=== PATIENT | female | born 1960 | race Caucasian/White ===

== ENCOUNTER 2019-10-01 13:13 | Outpatient (CLI) | payer MEDICARE, MEDICAID, SELFPAY ==
--- NOTE | 2019-10-01 13:22 | MM_ITS ---
WS: [id number] BILATERAL DIGITAL SCREENING MAMMOGRAPHY WITH CAD CLINICAL INFORMATION: SCREENING HISTORY: Screening mammogram. No current complaints. COMPARISON: TECHNIQUE: Bilateral CC and MLO views. FINDINGS: Scattered fibroglandular densities bilaterally. No suspicious focal mass, asymmetry, calcifications, or architectural distortion. Tiny bilateral punctate calcifications are stable. No evidence of malign noé. MM/[place] [id number] IMPRESSION: BI-RADS: 1-Negative FOLLOW UP: 1 Year Follow-up Recommend return to annual screening mammography.
== END 2019-10-01 13:14 | disposition home or self-care (01) ==
LOC: RADSHAW 13:18
PROVIDERS: Family Provider Family Medicine; PCP Family Medicine; Visit Provider Family Medicine
DX: Z12.31 Encounter for screening mammogram for malignant neoplasm of breast (principal)
CPT/HCPCS: 77067

== ENCOUNTER → 2019-12-26 08:21 | Outpatient (BNVA) | payer MEDICARE, MEDICAID, SELFPAY | PROVIDERS: Family Provider Family Medicine; PCP Family Medicine; Visit Provider Nurse Practitioner Psychiatric/Mental Health | DX: F33.41 Major depressive disorder, recurrent, in partial remission (principal); F41.8 Other specified anxiety disorders; F43.12 Post-traumatic stress disorder, chronic | CPT/HCPCS: 99213 ==

== ENCOUNTER → 2020-03-26 07:46 | Outpatient (BNVA) | payer MEDICARE, MEDICAID, SELFPAY | PROVIDERS: Family Provider Family Medicine; PCP Family Medicine; Visit Provider Nurse Practitioner Psychiatric/Mental Health | DX: F33.41 Major depressive disorder, recurrent, in partial remission (principal); F41.8 Other specified anxiety disorders; F43.12 Post-traumatic stress disorder, chronic | CPT/HCPCS: 99213 ==

== ENCOUNTER → 2020-06-25 08:06 | Outpatient (BNVA) | payer MEDICARE, MEDICAID, SELFPAY | PROVIDERS: Family Provider Family Medicine; PCP Family Medicine; Visit Provider Nurse Practitioner Psychiatric/Mental Health | DX: F33.41 Major depressive disorder, recurrent, in partial remission (principal); F41.8 Other specified anxiety disorders; F43.12 Post-traumatic stress disorder, chronic | CPT/HCPCS: 99213 ==

== ENCOUNTER → 2020-09-24 10:15 | Outpatient (BNVA) | payer MEDICARE, MEDICAID, SELFPAY | PROVIDERS: Family Provider Family Medicine; PCP Family Medicine; Visit Provider Nurse Practitioner Psychiatric/Mental Health | DX: F33.41 Major depressive disorder, recurrent, in partial remission (principal); F41.8 Other specified anxiety disorders; F43.12 Post-traumatic stress disorder, chronic | CPT/HCPCS: 99214 ==

== ENCOUNTER 2020-10-29 11:06 | Outpatient (CLI) | payer MEDICARE, MEDICAID, SELFPAY ==
--- NOTE | 2020-10-29 11:10 | MM_ITS ---
WS: [id number] BILATERAL DIGITAL SCREENING MAMMOGRAPHY WITH CAD CLINICAL INFORMATION: SCREENING HISTORY: Screening mammogram. No current complaints. COMPARISON: October 01, 2019 TECHNIQUE: Bilateral CC and MLO views. FINDINGS: Scattered fibroglandular densities bilaterally. No suspicious focal mass, asymmetry, calcifications, or architectural distortion. No evidence of malignancy. Stable tiny bilateral punctate calcifications . MM/[place] [id number] IMPRESSION: BI-RADS: 2-Benign FOLLOW UP: 1 Year Follow-up Recommend return to annual screening mammography.
== END 2020-10-29 11:07 | disposition home or self-care (01) ==
LOC: RADSHAW 11:08
PROVIDERS: PCP Nurse Practitioner Family; Visit Provider Nurse Practitioner Family
DX: Z12.31 Encounter for screening mammogram for malignant neoplasm of breast (principal)
CPT/HCPCS: 77067

== ENCOUNTER → 2020-12-17 11:44 | Outpatient (BNVA) | payer MEDICARE, MEDICAID, SELFPAY | PROVIDERS: PCP Nurse Practitioner Family; Visit Provider Nurse Practitioner Family | DX: E78.2 Mixed hyperlipidemia (principal); Z79.899 Other long term (current) drug therapy; I10 Essential (primary) hypertension; E55.9 Vitamin D deficiency, unspecified; E03.9 Hypothyroidism, unspecified; Z00.00 Encounter for general adult medical examination without abnormal findings | CPT/HCPCS: 80053; 80061; 81003; 82306; 83036; 84443; 85025 ==

== ENCOUNTER → 2020-12-31 08:48 | Outpatient (BNVA) | payer MEDICARE, MEDICAID, SELFPAY | PROVIDERS: PCP Nurse Practitioner Family; Visit Provider Nurse Practitioner Psychiatric/Mental Health | DX: F33.41 Major depressive disorder, recurrent, in partial remission (principal); F41.8 Other specified anxiety disorders; F43.12 Post-traumatic stress disorder, chronic | CPT/HCPCS: 99213 ==

== ENCOUNTER → 2021-06-24 08:15 | Outpatient (BNVA) | payer MEDICARE, MEDICAID, SELFPAY | PROVIDERS: PCP Nurse Practitioner Family; Visit Provider Nurse Practitioner Psychiatric/Mental Health | DX: F33.41 Major depressive disorder, recurrent, in partial remission (principal); F41.8 Other specified anxiety disorders; F43.12 Post-traumatic stress disorder, chronic | CPT/HCPCS: 99214 ==

== ENCOUNTER 2021-08-09 10:25 | Outpatient (CLI) | payer MEDICARE, MEDICAID, SELFPAY ==
--- NOTE | 2021-08-09 10:15 | USCV_ITS ---
Dianne Watson Age: 61 Gender: F : 1960 Exam Date: 08/09/2021 10:56 Ordering Phys: Torrey Sage MD ([email or web address]) Technologist: Rafia Irene [place] [facility] [place] DYSP[place]A BP: 112 / 60 HR: 56 Rhythm: Sinus Technical Quality: Adequate MEASUREMENTS (Male / Female) Normal Values 2D ECHO LV Diastolic Diameter PLAX 4.5 cm 4.2 - 5.9 / 3.9 - 5.3 cm LV Systolic Diameter PLAX 3.1 cm IVS Diastolic Thickness 1.7 cm 0.6 - 1.0 / 0.6 - 0.9 cm IVS Systolic Thickness 1.7 cm LVPW Diastolic Thickness 1.9 cm 0.6 - 1.0 / 0.6 - 0.9 cm LVPW Systolic Thickness 2.0 cm LVOT Diameter 2.0 cm LV Ejection Fraction 2D Teich 58.8 % LV Ejection Fraction MOD 2C 51.0 % LV Ejection Fraction 2C AL 46.0 % LA Diameter 3.1 cm LA Width 3.9 cm LA Height 5.6 cm RA Width 3.9 cm RA Height 5.2 cm Aorta at Sinotubular Diameter 2.9 cm M-MODE Aortic Annulus Diameter 3.6 cm LA Ao Ratio MM 0.9 MV E Point Septal Separation 0.8 cm DOPPLER AV Peak Velocity 118.0 cm/s LVOT Peak Velocity 106.0 cm/s AV Area Cont Eq vti 2.9 cm squared AV Area Cont Eq pk 2.8 cm squared MV Peak Velocity 111.0 cm/s MV Area PHT 3.3 cm squared Mitral E to A Ratio 2.0 MV E' Velocity 51.0 cm/s Mitral E to MV E' Ratio 10.3 Mitral E to LV E' Lateral Ratio 9.7 Mitral E to LV E' Septal Ratio 11.2 TR Peak Velocity 205.3 cm/s TR Peak Gradient 16.9 mmHg TR Mean Velocity 161.0 cm/s TR Mean Gradient 11.0 mmHg TR Velocity Time Integral 66.4 cm TV Peak E Velocity 42.0 cm/s Right Atrial Pressure 3.0 mmHg Pulmonary Artery Systolic Pressu 19.9 mmHg PV Peak Velocity 89.0 cm/s RV Acceleration Time 0.1 s RV Ejection Time 0.4 s RV AcT/ET 0.3 FINDINGS Left Ventricle Normal left ventricular size with normal ejection fraction of 58% . Mild left ventricular hypertrophy. No significant wall motion normalities. Grade III/IV diastolic dysfunction (restrictive filling pattern), severely elevated filling pressures. Right Ventricle The right ventricle is normal in size and function. Right Atrium The right atrium is normal in size. Left Atrium Mildly increased left atrial size. Mitral Valve Trace mitral valve regurgitation. Aortic Valve Mild aortic valve regurgitation. Tricuspid Valve Mild tricuspid valve regurgitation. Pulmonic Valve No gross abnormalities noted Pericardium Normal pericardium without effusion. Aorta Normal ascending aorta dimension. Aortic root, at the level of the sinuses, measured 3.6 cm in diameter CONCLUSIONS Normal left ventricular size with normal LVEF of 58 %. Mild left ventricular hypertrophy. No significant wall motion abnormalities. Grade III/IV diastolic dysfunction (restrictive filling pattern), severely elevated filling pressures. Mildly increased left atrial size. Mild aortic and tricuspid valve regurgitation. Trace mitral valve regurgitation. There is no pericardial effusion. There are no intracardiac masses. Aortic root at the level of the sinuses measured 3.6 cm in diameter, upper limit of normal. Compared to the study from 05/19/2013, the diastolic dysfunction appears to be new. Dr Torrey Sage MD [facility] (Electronically Signed) Final Date: 09 August 2021 20:29 S
== END 2021-08-09 10:26 | disposition home or self-care (01) ==
LOC: RAD 10:34
PROVIDERS: PCP Nurse Practitioner Family; Visit Provider Internal Medicine Cardiovascular Disease
DX: R06.00 Dyspnea, unspecified (principal); I08.3 Combined rheumatic disorders of mitral, aortic and tricuspid valves
CPT/HCPCS: 93306

== ENCOUNTER → 2021-09-30 08:28 | Outpatient (BNVA) | payer MEDICARE, MEDICAID, SELFPAY | PROVIDERS: PCP Nurse Practitioner Family; Visit Provider Nurse Practitioner Psychiatric/Mental Health | DX: F33.41 Major depressive disorder, recurrent, in partial remission (principal); F41.8 Other specified anxiety disorders; F43.12 Post-traumatic stress disorder, chronic | CPT/HCPCS: 99214 ==

== ENCOUNTER 2021-12-23 10:07 | Outpatient (CLI) | payer MEDICARE, MEDICAID, SELFPAY ==
--- NOTE | 2021-12-23 10:22 | MM_ITS ---
WS: [id number] Exam: [place] [id number] Date/Time of Exam: 12/23/2021 10:22 AM Reason For Exam: SCREENING VIEWS: MLO and CC views both breasts. 3D digital tomosynthesis is also included in this exam. Comparison made with prior exam of 01/07/2015, 01/21/2016, 01/25/2017, 06/19/2018, 10/01/2019, and 10/29/19 21 Findings: There was no sign of mass, architectural distortion or suspicious calcification in either breast. Fa tty MM/[place] [id number] Impression: BI-RADS: 2-Benign FOLLOW-UP: 1 Year Follow-up This mammogram was also analyzed by the Computer Aided Detection System R2 Imag e Manager Service Desk.
== END 2021-12-23 10:08 | disposition home or self-care (01) ==
LOC: RAD 10:19
PROVIDERS: PCP Nurse Practitioner; Visit Provider Nurse Practitioner Family
DX: Z12.31 Encounter for screening mammogram for malignant neoplasm of breast (principal)
CPT/HCPCS: 77063; 77067

== ENCOUNTER → 2021-12-30 08:31 | Outpatient (BNVA) | payer MEDICARE, MEDICAID, SELFPAY | PROVIDERS: PCP Nurse Practitioner; Visit Provider Nurse Practitioner Psychiatric/Mental Health | DX: F33.41 Major depressive disorder, recurrent, in partial remission (principal); F41.8 Other specified anxiety disorders; F43.12 Post-traumatic stress disorder, chronic | CPT/HCPCS: 99214 ==

== ENCOUNTER → 2022-01-13 10:38 | Outpatient (BNVA) | payer MEDICARE, MEDICAID, SELFPAY | PROVIDERS: PCP Nurse Practitioner; Visit Provider Nurse Practitioner | DX: Z79.899 Other long term (current) drug therapy (principal); R51.9 Headache, unspecified | CPT/HCPCS: 80053; 81000; 84443; 85025 ==

== ENCOUNTER → 2022-04-28 09:37 | Outpatient (BNVA) | payer MEDICARE, MEDICAID, SELFPAY | PROVIDERS: PCP Nurse Practitioner; Visit Provider Nurse Practitioner | DX: E55.9 Vitamin D deficiency, unspecified (principal); E03.9 Hypothyroidism, unspecified; E78.2 Mixed hyperlipidemia; I10 Essential (primary) hypertension; Z79.899 Other long term (current) drug therapy; L30.9 Dermatitis, unspecified; K21.9 Gastro-esophageal reflux disease without esophagitis | CPT/HCPCS: 80053; 80061; 81003; 82306; 83036; 84443; 85025 ==

== ENCOUNTER → 2022-06-13 09:46 | Outpatient (BNVA) | payer MEDICARE, MEDICAID, SELFPAY | PROVIDERS: PCP Nurse Practitioner; Visit Provider Internal Medicine Cardiovascular Disease | DX: Z98.890 Other specified postprocedural states (principal); Z86.79 Personal history of other diseases of the circulatory system; I10 Essential (primary) hypertension; F43.12 Post-traumatic stress disorder, chronic; E78.2 Mixed hyperlipidemia; E03.9 Hypothyroidism, unspecified | CPT/HCPCS: 99214 ==

== ENCOUNTER 2022-07-17 08:06 | Outpatient (CLI) | payer MEDICARE, MEDICAID, SELFPAY ==
--- NOTE | 2022-07-17 08:00 | CT_ITS ---
WS: [id number] CTA THORACIC AORTA WITH AND WITHOUT CONTRAST. HISTORY: Status post ascending aortic repair. Repair in 2003. TECHNIQUE: CT imaging of the thorax is performed with and without contrast. After noncontrast imaging is performed, CT angiogram is performed during injection of Omnipaque 350; 95 mL IV.. Sagittal and c oronal reconstructions, sagittal and coronal MIP imaging is submitted. All CT scans at [facility] use at least one of these dose optimization techniques: automated exposure control; mA and/or kV adjustment per patient size (includes targeted exams where dose is matched to clinical indication); or iterative reconstruction. DLP: 1192.26 mGy.cm COMPARISON: 08/05/2019 Status post ascending aortic repair. The graft appears similar position to the study from 08/05/2019. There is mild ectasia of the ascending aorta with no increase in diameter. Maximum diameter is approx imately 4.0 cm. Aortic annulus is similar diameter the prior study. Aorta tapers normally from the ar ch. Descending aorta is normal caliber. There is no dissection. No mediastinal hematoma. No significa nt amount of thrombus within the graft. Normal size pulmonary artery. Mild enlargement of the LEFT heart chambers. No filling defects within the LEFT atrial appendage. Tricuspid regurgitation into hepatic veins. Lungs are clear. No pulmonary mass, nodule or pneumonia. No pericardial or pleural effusions. Normal enhancement of the proximal pulmonary arteries. Prior cholecystectomy. No adrenal mass. Straightening of the normal thoracic kyphosis. Moderate spondylitic changes with degenerative gas in the disc spaces. Prior median sternotomy. CT/CT angio chest [id number] IMPRESSION: 1. Long-term stability ascending aorta graft repair. No increase in diameter a nd no increase in atherosclerotic disease. No dissection. 2. Prior cholecystectomy. 3. Mild LEFT heart enlargement. 4. Tricuspid regurgitation into hepatic veins.
[2022-07-17] MEDS: iohexol 350 mg/mL 500 mL Btl (per mL) IV (08:39)
== END 2022-07-17 08:07 | disposition home or self-care (01) ==
LOC: RAD 08:10
PROVIDERS: PCP Nurse Practitioner; Visit Provider Internal Medicine Cardiovascular Disease
DX: Z98.890 Other specified postprocedural states (principal); Z86.79 Personal history of other diseases of the circulatory system; I07.1 Rheumatic tricuspid insufficiency; Z90.49 Acquired absence of other specified parts of digestive tract
CPT/HCPCS: 71275; Q9967

== ENCOUNTER → 2022-08-16 13:15 | Outpatient (BNVA) | payer MEDICARE, MEDICAID, SELFPAY | PROVIDERS: PCP Nurse Practitioner; Visit Provider Nurse Practitioner | DX: R51.9 Headache, unspecified (principal) | CPT/HCPCS: 99204 ==

== ENCOUNTER 2022-10-18 10:08 | Outpatient (CLI) | payer MEDICAID, SELFPAY ==
--- NOTE | 2022-10-18 10:15 | MR_ITS ---
WS: [id number] MRI HEAD WITHOUT CONTRAST TECHNIQUE: Sagittal T1, T2 axial, T2 axial FLAIR, axial and coronal T1 images, axial susceptibility w eighted imaging, axial diffusion weighted images, and coronal T2 images were obtained. CLINICAL INFORMATION: R51.9 - Headache, unspecified COMPARISON: CT December 18, 2016 FINDINGS: No evidence of restricted diffusion to suggest acute ischemia. Ventricular system and basal cisterns are patent. Mild small vessel changes. Moderate parenchymal volume loss. Normal posterior fossa. Norm al vascular flow voids at the skull base. Paranasal sinuses are well aerated. Mastoid air cells well aerated. Normal posterior nasopharynx. Normal parapharyngeal fat. Moderate symmetric atrophy temporal lobes and hippocampal formations. Normal optic chiasm and pituita ry infundibulum. No hemosiderin on the susceptibility weighted images. LEFT alex bullosa in the mid dle turbinate. MR/MR head wo con* [id number] IMPRESSION: 1. No evidence of restricted diffusion to suggest acute ischemia. 2. Mild small vessel changes with moderate parenchymal volume loss. 3. No hemosiderin on susceptibly weighted images. 4. Moderate symmetric atrophy temporal lobes and hippocampal formations. 5. Paranasal sinuses and mastoid air cells well aerated. 6. Normal optic chiasm. 7. No other acute findings.
== END 2022-10-18 10:09 | disposition home or self-care (01) ==
PROVIDERS: PCP Nurse Practitioner; Visit Provider Nurse Practitioner
DX: R51.9 Headache, unspecified (principal); G31.9 Degenerative disease of nervous system, unspecified
CPT/HCPCS: 70551

== ENCOUNTER → 2022-12-27 09:49 | Outpatient (BNVA) | payer MEDICARE, MEDICAID, SELFPAY | PROVIDERS: PCP Nurse Practitioner; Visit Provider Specialist | DX: E78.2 Mixed hyperlipidemia (principal); Z98.890 Other specified postprocedural states; Z86.79 Personal history of other diseases of the circulatory system; I10 Essential (primary) hypertension; Z79.82 Long term (current) use of aspirin | CPT/HCPCS: 99214 ==

== ENCOUNTER 2023-01-12 07:02 | Outpatient (CLI) | payer MEDICARE, MEDICAID, SELFPAY ==
--- NOTE | 2023-01-12 07:37 | MM_ITS ---
WS: [id number] BILATERAL SCREENING DIGITAL TOMOSYNTHESIS MAMMOGRAM WITH CAD HISTORY: Screening exam. COMPARISON: 12/23/2021 and 10/29/2020 Bilateral CC and MLO views with tomosynthesis and synthetic mammography submitted. Computer aided det ection analyzed. Breast composition: There are scattered areas of fibroglandular density. No suspicious masses, microc alcifications or architectural distortion. Benign scattered calcifications in each breast. MM/[place] [id number] IMPRESSION: BI-RADS: 2-Benign FOLLOW UP: 1 Year Follow-up
== END 2023-01-12 07:03 | disposition home or self-care (01) ==
LOC: RAD 07:04
PROVIDERS: PCP Nurse Practitioner; Visit Provider Nurse Practitioner
DX: Z12.31 Encounter for screening mammogram for malignant neoplasm of breast (principal); E03.9 Hypothyroidism, unspecified; E78.2 Mixed hyperlipidemia; I10 Essential (primary) hypertension
CPT/HCPCS: 77063; 77067; 80053; 80061; 81000; 84443; 85025

== ENCOUNTER → 2023-03-19 09:13 | Outpatient (BNVA) | payer MEDICARE, MEDICAID, SELFPAY | PROVIDERS: PCP Nurse Practitioner; Visit Provider Specialist | DX: G43.711 Chronic migraine without aura, intractable, with status migrainosus (principal) | CPT/HCPCS: 99214 ==

== ENCOUNTER → 2023-06-08 11:46 | Outpatient (BNVA) | payer MEDICARE, MEDICAID, OTHER, SELFPAY | PROVIDERS: PCP Nurse Practitioner; Visit Provider Nurse Practitioner | DX: Z79.899 Other long term (current) drug therapy (principal); F33.41 Major depressive disorder, recurrent, in partial remission; F41.8 Other specified anxiety disorders | CPT/HCPCS: 80053; 80061; 81000; 83036; 84443; 85025 ==

== ENCOUNTER → 2023-07-02 09:16 | Outpatient (BNVA) | payer MEDICARE, MEDICAID, SELFPAY | PROVIDERS: PCP Nurse Practitioner; Visit Provider Nurse Practitioner Family | DX: I10 Essential (primary) hypertension (principal) | CPT/HCPCS: 99213 ==

== ENCOUNTER → 2023-07-12 09:43 | Outpatient (BNVA) | payer MEDICARE, MEDICAID, SELFPAY | PROVIDERS: PCP Nurse Practitioner; Visit Provider Specialist | DX: G43.711 Chronic migraine without aura, intractable, with status migrainosus (principal) | CPT/HCPCS: 99213 ==

== ENCOUNTER → 2023-12-21 10:49 | Outpatient (BNVA) | payer MEDICARE, MEDICAID, SELFPAY | PROVIDERS: PCP Nurse Practitioner Family; Visit Provider Nurse Practitioner Family | DX: I10 Essential (primary) hypertension (principal); E78.2 Mixed hyperlipidemia; E03.9 Hypothyroidism, unspecified; Z79.899 Other long term (current) drug therapy; F33.41 Major depressive disorder, recurrent, in partial remission; F41.8 Other specified anxiety disorders | CPT/HCPCS: 80053; 80061; 81003; 83036; 84443; 85025 ==

== ENCOUNTER → 2024-01-07 10:10 | Outpatient (BNVA) | payer MEDICARE, MEDICAID, SELFPAY | PROVIDERS: PCP Nurse Practitioner Family; Visit Provider Internal Medicine Cardiovascular Disease | DX: Z98.890 Other specified postprocedural states (principal); Z86.79 Personal history of other diseases of the circulatory system; I10 Essential (primary) hypertension; E78.2 Mixed hyperlipidemia; F33.41 Major depressive disorder, recurrent, in partial remission; F41.8 Other specified anxiety disorders; E03.9 Hypothyroidism, unspecified | CPT/HCPCS: 99214 ==

== ENCOUNTER 2024-01-18 08:47 | Outpatient (CLI) | payer MEDICARE, MEDICAID, SELFPAY ==
--- NOTE | 2024-01-18 08:53 | MM_ITS ---
WS: [id number] Bilateral screening 3D tomosynthesis digital mammogram, 01/18/2024 Clinical Data: SCREENING Comparison: 01/12/2023, 12/23/2021, 10/29/2020, 10/01/2019, 06/19/2018, 01/25/2017, 01/21/2016, 01/07/2015, , 12/31/2012, 10/02/2011, 09/22/2011, 08/05/2010. Findings: The breast parenchymal pattern shows fibroglandular tissue. No spiculated masses or clustered calcifi cations are seen. There are no secondary signs of carcinoma. MM/[place] [id number] Impression: 1. Negative bilateral mammogram unchanged. 2. Recommend annual screening mammograms. BIRADS: 1-Negative FOLLOW UP: 1 Year Follow-up The CAD purchase order checker was used.
== END 2024-01-18 08:48 | disposition home or self-care (01) ==
LOC: RAD 08:47
PROVIDERS: PCP Nurse Practitioner Family; Visit Provider Nurse Practitioner Family
DX: Z12.31 Encounter for screening mammogram for malignant neoplasm of breast (principal)
CPT/HCPCS: 77063; 77067

== ENCOUNTER 2024-03-14 11:45 | Outpatient (CLI) | payer MEDICARE, MEDICAID, SELFPAY ==
--- NOTE | 2024-03-14 11:45 | USCV_ITS ---
Dianne Watson Age: 63 Gender: F : 1960 Exam Date: 03/14/2024 14:25 Ordering Phys: ILENE Su APRN Technologist: DEXTER Exam Location: [facility] [place] Indication: RLE PAIN AND SWELLING HISTORY: Lower extremity swelling. Lower extremity pain. PROCEDURES: Venous duplex imaging was performed in only the right lower extremity. The following venous structures were evaluated: common femoral vein, profunda vein, proximal portion of the greater saphenous vein, superficial femoral vein, and the popliteal vein. In addition, the posterior tibial and peroneal trunk were evaluated. Serial compression, augmentation maneuvers, and spectral Doppler flow evaluation were performed. FINDINGS: No evidence of DVT seen in any vessel visualized at this time. Edema seen in lower leg CONCLUSIONS No evidence of right lower extremity DVT. Ajit Cooper MD (Electronically Signed) Final Date: 14 March 2024 14:46 S
== END 2024-03-14 11:46 | disposition home or self-care (01) ==
PROVIDERS: PCP Nurse Practitioner Family; Visit Provider Nurse Practitioner Family
DX: I82.401 Acute embolism and thrombosis of unspecified deep veins of right lower extremity (principal)
CPT/HCPCS: 93971

== ENCOUNTER 2024-05-20 11:41 | Outpatient (CLI) | payer MEDICARE, MEDICAID, SELFPAY ==
--- NOTE | 2024-05-20 11:45 | XRR_ITS ---
PROCEDURE INFORMATION: Exam: XR Lumbosacral Spine Exam date and time: 05/20/2024 12:16 PM Age: 63 years old Clinical indication: Low back pain; Patient HX: Pian in in back and down left leg for indeterminate amount of time; Additional info: M51.36 - other intervertebral disc degeneration, lumbar R. . . TECHNIQUE: Imaging protocol: Radiologic exam of the lumbosacral spine. Views: 6 or more views. Including flexion and extension views. COMPARISON: No relevant prior studies available. FINDINGS: Bones/joints: Right upper quadrant surgical clips. . Disc space narrowing and spurring at all levels. Minimal retrolisthesis of L3 on L4 and of L2 on L3 both of which are stable with motion. No acute fracture. Soft tissues: Unremarkable. Gastrointestinal tract: Nondistended loops of colon and small bowel. XR/XR lumbar spine 6V w f/e [id number] IMPRESSION: Degenerative changes.
[2024-05-20 12:33] LABS: Basophils # 0.1 10^3/uL (0.0-0.1); Basophils % 0.8 %; Eosinophils # 0.3 10^3/uL (0.0-0.8); Eosinophils % 5.2 %; Hematocrit 41.4 % (36-47); Lymphocytes # 1.8 10^3/uL (0.8-4.8); Lymphocytes % 28.3 %; Mean Corpuscular HGB Conc 31.2 g/dL (30-55); Mean Corpuscular Hemoglobin 29.6 pg (27-33); Mean Platelet Volume 11.8 fL (7.4-10.4); Monocytes # 0.4 10^3/uL (0.2-0.9); Monocytes % 6.6 %; Neutrophils # 3.77 10^3/uL (1.8-7.7); Neutrophils % 58.8 %; Nucleated Red Blood Cells % 0 %; Platelet Count 145 10^3/cmm (157-399); Red Blood Count 4.36 10^6/uL (3.85-5.65)
[2024-05-20 13:08] LABS: Alanine Aminotransferase 24 U/L (0-33); Albumin Level 4.2 g/dL (3.5-5.2); Alkaline Phosphatase 111 U/L (35-105); Aspartate Amino Transferase 28 U/L (0-32); Blood Urea Nitrogen 22 mg/dL (8-23); Calcium 8.8 mg/dL (8.5-10.5); Carbon Dioxide 23 mmol/L (22-29); Chloride 110 mmol/L (98-107); Free T4 Free Thyroxine 0.73 ng/dL (0.82-1.77); Globulin 2.7 g/dL (1.3-4.6); Glomerular Filtration Rate 72.4 mL/min (90-130); Glucose 95 mg/dL (65-115); Osmolality Calculated 301 mOsm/kg (285-295); Sodium 144 mmol/L (136-145); Thyroid Stimulating Hormone 2.73 uIU/mL (0.27-4.20); Total Bilirubin 0.2 mg/dL (0.15-1.2); Total Protein 6.9 g/dL (6.6-8.7)
== END 2024-05-20 11:42 | disposition home or self-care (01) ==
LOC: RAD 11:42
PROVIDERS: PCP Nurse Practitioner Family; Visit Provider Nurse Practitioner Family
DX: M51.36 Other intervertebral disc degeneration, lumbar region (principal); M25.78 Osteophyte, vertebrae; M48.07 Spinal stenosis, lumbosacral region; M53.86 Other specified dorsopathies, lumbar region; R52 Pain, unspecified; I48.91 Unspecified atrial fibrillation
CPT/HCPCS: 36415; 72114; 80053; 84439; 84443; 85025

== ENCOUNTER → 2024-05-21 15:18 | Outpatient (BNVA) | payer MEDICARE, MEDICAID, SELFPAY | PROVIDERS: PCP Nurse Practitioner Family; Visit Provider Internal Medicine Cardiovascular Disease | DX: I51.7 Cardiomegaly (principal); I48.92 Unspecified atrial flutter; I45.9 Conduction disorder, unspecified; I21.9 Acute myocardial infarction, unspecified; I21.11 ST elevation (STEMI) myocardial infarction involving right coronary artery; R07.9 Chest pain, unspecified | CPT/HCPCS: 93005; 99215 ==

== ENCOUNTER 2024-06-03 06:30 | Outpatient (RCR) | payer MEDICARE, MEDICAID, OTHER, SELFPAY | END 2024-07-03 23:59 | disposition home or self-care (01) | LOC: WPT 06:30 | PROVIDERS: Visit Provider Nurse Practitioner Family | DX: M51.360 Other intervertebral disc degeneration, lumbar region with discogenic back pain only (principal) | CPT/HCPCS: 97110; 97112; 97162; 97530 ==

== ENCOUNTER 2024-06-23 09:08 | Outpatient (CLI) | payer MEDICARE, MEDICAID, SELFPAY ==
--- NOTE | 2024-06-23 09:30 | MR_ITS ---
WS: [id number] MRI LUMBAR SPINE NONCONTRAST HISTORY: M51.36 - Other intervertebral disc degeneration, lumbar pain COMPARISON: None available. TECHNIQUE: Sagittal and axial multisequence imaging is submitted. Cervical and thoracic spondylosis. Disc bulges and osteophytes at numerous disc levels. Mild stenosis in the cervical spine at C3-4 and C4-5. LEFT rotary scoliosis lumbar spine. Disc spaces are narrowed and desiccated. Small vertebral body osteophytes. L2 and L3 retrolisthesis b y 3 mm. Conus terminates normally at L1-2 disc level. L1-L2: Diffuse annular disc bulge. LEFT paracentral disc protrusion with mild ligamentum flavum and f acet arthritis. Mild disc encroachment upon the traversing LEFT L2 nerve root. Mild LEFT foraminal st enosis. L2-L3: Diffuse osteophytic ridging with annular disc bulging, ligamentum flavum and facet arthritis. Broad-based disc bulging encroaching upon the thecal sac and subarticular recesses. Disc contacts the traversing L3 nerve roots. Disc protrusions extend into the foramina. Moderate central, bilateral landry barticular recess and foraminal stenosis. L3-L4: Diffuse annular disc bulging with osteophytic ridging, ligamentum flavum and facet arthritis. Central disc protrusion with additional bilateral foraminal disc protrusions. There is contact on the traversing L4 nerve roots, RIGHT greater than LEFT. Moderate central, bilateral subarticular recess and foraminal stenosis. L4-L5: Diffuse annular disc bulging with ligamentum flavum and facet arthritis. Moderate central, ozzy ateral subarticular recess and mild foraminal stenosis. L5-S1: Diffuse annular disc bulge with a central disc protrusion and fissure. Severe facet and ligame ntum flavum hypertrophy. There is mild encroachment upon the S1 nerve roots. Mild central stenosis. S evere bilateral foraminal stenosis. MR/MR lumbar spine wo con* [id number] IMPRESSION: 1. Advanced degenerative changes throughout the lumbar spine. Multilevel areas of stenosis due to multiple factors. 2. L5-S1: Severe bilateral foraminal stenosis with marked facet arthritis. Mil d central stenosis. 3. L4-5: Moderate central, bilateral subarticular recess and mild foraminal st enosis. 4. L3-4: Moderate central, bilateral subarticular recess and foraminal stenosi s. Greater contact on the traversing L4 nerve roots, RIGHT greater than LEFT. 5. L2-3: Moderate central, bilateral subarticular recess and foraminal stenosi s. Disc contacts the traversing L3 nerve roots. 6. L1-2: Small LEFT paracentral disc protrusion. Mild LEFT foraminal stenosis.
== END 2024-06-23 09:09 | disposition home or self-care (01) ==
LOC: RAD 09:08
PROVIDERS: PCP Nurse Practitioner Family; Visit Provider Nurse Practitioner Family
DX: M51.360 Other intervertebral disc degeneration, lumbar region with discogenic back pain only (principal); M99.63 Osseous and subluxation stenosis of intervertebral foramina of lumbar region; M25.78 Osteophyte, vertebrae; M47.814 Spondylosis without myelopathy or radiculopathy, thoracic region; M53.86 Other specified dorsopathies, lumbar region
CPT/HCPCS: 72148

== ENCOUNTER → 2024-07-08 10:27 | Outpatient (BNVA) | payer MEDICARE, MEDICAID, SELFPAY | PROVIDERS: Visit Provider Specialist | DX: R29.90 Unspecified symptoms and signs involving the nervous system (principal); G43.711 Chronic migraine without aura, intractable, with status migrainosus | CPT/HCPCS: 99213 ==

== ENCOUNTER → 2024-07-14 10:15 | Outpatient (BNVA) | payer MEDICARE, MEDICAID, SELFPAY | PROVIDERS: PCP Nurse Practitioner Family; Visit Provider Internal Medicine Cardiovascular Disease | DX: R00.1 Bradycardia, unspecified (principal); I48.91 Unspecified atrial fibrillation; I10 Essential (primary) hypertension; E78.2 Mixed hyperlipidemia; Z98.890 Other specified postprocedural states; Z86.79 Personal history of other diseases of the circulatory system; I82.401 Acute embolism and thrombosis of unspecified deep veins of right lower extremity; Z87.891 Personal history of nicotine dependence | CPT/HCPCS: 99213 ==

== ENCOUNTER → 2024-10-13 08:47 | Outpatient (BNVA) | payer MEDICARE, MEDICAID, SELFPAY | PROVIDERS: PCP Nurse Practitioner Family; Visit Provider Nurse Practitioner Family | DX: I10 Essential (primary) hypertension (principal); R00.1 Bradycardia, unspecified; I48.91 Unspecified atrial fibrillation; Z98.890 Other specified postprocedural states; Z86.79 Personal history of other diseases of the circulatory system; Z86.718 Personal history of other venous thrombosis and embolism; Z79.01 Long term (current) use of anticoagulants; Z87.891 Personal history of nicotine dependence | CPT/HCPCS: 99214 ==

== ENCOUNTER → 2024-12-19 09:52 | Outpatient (BNVA) | payer MEDICARE, MEDICAID, SELFPAY | PROVIDERS: PCP Nurse Practitioner Family; Visit Provider Nurse Practitioner Family | DX: Z12.11 Encounter for screening for malignant neoplasm of colon (principal); Z12.31 Encounter for screening mammogram for malignant neoplasm of breast; E55.9 Vitamin D deficiency, unspecified; I10 Essential (primary) hypertension; E03.9 Hypothyroidism, unspecified; Z79.899 Other long term (current) drug therapy; F33.41 Major depressive disorder, recurrent, in partial remission; F41.8 Other specified anxiety disorders | CPT/HCPCS: 80053; 80061; 81003; 82306; 83036; 84439; 84443; 85025 ==

== ENCOUNTER → 2024-12-29 09:13 | Outpatient (BNVA) | payer MEDICARE, MEDICAID, SELFPAY | PROVIDERS: PCP Nurse Practitioner Family; Visit Provider Student in an Organized Health Care Education/Training Program | DX: Z12.11 Encounter for screening for malignant neoplasm of colon (principal) | CPT/HCPCS: 99024; 99204 ==

== ENCOUNTER 2025-02-03 06:57 | Day surgery (SDC) | payer MEDICARE, MEDICAID, SELFPAY ==
[2025-02-03 07:14] VITALS: BP 120/61; PULSE 67; RESP 18; TEMP 36.5; O2SAT 97; BMI 28.1
[2025-02-03] MEDS: sodium chloride 0.9% 1,000 ML 15 ML IV (07:27)
--- NOTE | 2025-02-03 07:48 | ANES.PREANE2 ---
Documented by User: Severino Freeman DO 02/03/25 07:52 Pre-Anesthetic Assessment Height/Weight: Height 5 ft 10 in Weight 196 lb Temp Pulse Resp BP Pulse Ox O2 Del Method 97.7 F 67 18 120/61 97 Room Air 02/03/25 07:14 02/03/25 07:14 02/03/25 07:14 02/03/25 07:14 02/03/25 07:14 02/03/25 07:14 Preop Diagnosis: GERD Operation Date: 02/03/25 08:15 Proposed Procedures p Colonoscopy 56973 G0121, Z12.11(Not Applicable) - Alden Garcia MD Was Beta Stefano taken within 24 hours: Yes Was Clonidine taken within 24 hours: N/A Last intake: Intake Last Liquid Date 02/02/25 Last Liquid Time 21:00 Last Solid Date 02/01/25 Last Solid Time 18:00 Social Tobacco and No alcohol Exam alert and oriented x 3 Expiratory wheezing heard on auscultation Airway Submandibular: within normal limits Cervical ROM: within normal limits Mallampati: Class III Comments: Comments: Edentulous Anesthetic Plan ASA status: 3 Anesthesia: MAC Other: No prior issues with anesthesia NPO since yesterday Patient has a history of symptomatic bradycardia but states symptoms have improved. Follows with cardiology S/p aortic aneurysm repair Prior DVTs of lower extremity Holter monitor showing sinus bradycardia but did note A-fib 12% of the time Patient still smokes Will plan on DuoNeb treatment prior to anesthesia today Plan for MAC anesthesia Medications/Allergies Home Medications ?Medication ?Instructions ?Recorded ?Confirmed ?Last Taken ?Type cetirizine 10 mg tablet (Zyrtec) 10 mg PO QDAY 09/30/19 01/28/25 02/02/25 History galcanezumab-gnlm 120 mg/mL 120 mg SUBCUT ONCE #1 mL 07/08/24 01/28/25 02/02/25 Rx subcutaneous syringe (Emgality) topiramate 50 mg tablet 100 mg (2 x 50 mg) PO BID #180 tabs 07/11/24 01/28/25 02/02/25 Rx carvedilol 3.125 mg tablet 3.125 mg PO BID #60 tabs 07/14/24 01/28/25 02/02/25 Rx lisinopril 20 mg tablet See Rx Instructions .Route 08/22/24 01/28/25 02/02/25 Rx .COMPLEX #30 tabs levothyroxine 25 mcg tablet See Rx Instructions .Route 09/29/24 01/28/25 02/02/25 Rx .COMPLEX #90 tabs apixaban 5 mg tablet (Eliquis) 5 mg PO BID #60 tabs 11/11/24 01/28/25 02/02/25 Rx hydroxyzine HCl 25 mg tablet 25 mg PO TID PRN anxiety #90 tabs 12/26/24 01/28/25 02/02/25 Rx prazosin 2 mg capsule 8 mg (4 x 2 mg) PO .at bedtime 12/26/24 01/28/25 02/02/25 Rx #120 caps quetiapine 50 mg tablet (Seroquel) 100 mg (2 x 50 mg) PO .QHS #60 tabs 12/26/24 01/28/25 02/02/25 Rx sertraline 100 mg tablet (Zoloft) 200 mg (2 x 100 mg) PO .morning 12/26/24 01/28/25 02/02/25 Rx #60 tabs magnesium citrate 300 ml PO DAILY PRN constipation 12/29/24 01/28/25 02/02/25 Rx #296 mL cholecalciferol (vitamin D3) 50 50 mcg PO DAILY #90 caps 12/30/24 01/28/25 02/02/25 Rx mcg (2,000 unit) capsule celecoxib 100 mg capsule 100 mg PO BID 01/28/25 01/28/25 02/02/25 History docusate sodium 100 mg capsule 100 mg PO BID 01/28/25 01/28/25 02/02/25 History ezetimibe 10 mg tablet 10 mg PO DAILY 01/28/25 01/28/25 02/02/25 History fluticasone propionate 50 1 spray intranasal DAILY 01/28/25 01/28/25 02/02/25 History mcg/actuation nasal spray,suspension nitroglycerin 0.4 mg sublingual 0.4 mg sublingual PRN PRN Chest 01/28/25 01/28/25 02/02/25 History tablet Pain simvastatin 80 mg tablet 80 mg PO DAILY 01/28/25 01/28/25 02/02/25 History ubrogepant 100 mg tablet (Ubrelvy) 100 mg PO PRN PRN Migraine Headache 01/28/25 01/28/25 02/02/25 History Allergies Allergy/AdvReac Type Severity Reaction Status Date / Time Iodine and Iodide Containing Allergy Intermediate sick Verified 02/03/25 07:13 Produc Current Medications Generic Name Dose Route Start Last Admin Trade Name Freq PRN Reason Stop Dose Admin Sodium Chloride 1,000 mls @ 15 mls/hr 02/03/25 07:02 02/03/25 07:27 Sodium Chloride 0.9% IV 02/04/25 07:01 15 mls/hr .Q24H PRN Administration COLONOSCOPY FLUIDS PFSH Anesthesia Medical History Annual physical exam Breast cancer screening by mammogram Colon cancer screening Chronic back pain Chronic back pain Atrial fibrillation with slow ventricular response Arrhythmia Sciatica associated with disorder of lumbar spine DDD (degenerative disc disease), lumbar Deep vein thrombosis (DVT) of right lower extremity Psychiatric care Medication management Chronic idiopathic constipation Chronic pain Vitamin D deficiency Seizure disorder Obesity COPD (chronic obstructive pulmonary disease) Hypothyroid Coronary artery disease Aortic aneurysm GERD (gastroesophageal reflux disease) Hyperlipidemia HTN (hypertension) Chronic post-traumatic stress disorder Major depressive disorder, recurrent episode, in partial remission with anxious distress Surgical History (Updated 12/29/24 @ 09:23 by FERMIN Oviedo) S/P cholecystectomy S/P coronary artery stent placement S/P aortic aneurysm repair Ascending aortic aneurysm repair by Dr Calderon Family History Other Myocardial infarction Stroke Social History Smoking and tobacco/nicotine status: former use of tobacco/nicotine Alcohol intake: never Substance/Drug Use: never Data Anesthesia Cardiac Studies: Echocardiogram 08/09/21 Holter Monitor 05/22/24 Documented by User: Dipti Beckwith CRNA 02/03/25 08:14 Pre-Anesthetic Assessment Preop Diagnosis: SCREENING Familial anesthetic complications: none Social No tobacco Pulmonary None reported CV/HEM Atrial Fibrillation, Deep Vein Thrombosis and Hypertension None reported Hepatic None reported GI Gastroesophageal Reflux Disease Metabolic Hyperlipidemia and Thyroid Disease [facility] None reported Neuropsych Anxiety and Depression Schizophrenia- Nursing Resident present Odessa Camacho signing for patient. Anesthetic Plan Other: No prior issues with anesthesia NPO since yesterday Patient has a history of symptomatic bradycardia but states symptoms have improved. Follows with cardiology S/p aortic aneurysm repair Prior DVTs of lower extremity- patient unaware. Holter monitor showing sinus bradycardia but did note A-fib 12% of the time Plan for MAC anesthesia Medications/Allergies Home Medications ?Medication ?Instructions ?Recorded ?Confirmed ?Last Taken ?Type cetirizine 10 mg tablet (Zyrtec) 10 mg PO QDAY 09/30/19 01/28/25 02/02/25 History galcanezumab-gnlm 120 mg/mL 120 mg SUBCUT ONCE #1 mL 07/08/24 01/28/25 02/02/25 Rx subcutaneous syringe (Emgality) topiramate 50 mg tablet 100 mg (2 x 50 mg) PO BID #180 tabs 07/11/24 01/28/25 02/02/25 Rx carvedilol 3.125 mg tablet 3.125 mg PO BID #60 tabs 07/14/24 01/28/25 02/02/25 Rx lisinopril 20 mg tablet See Rx Instructions .Route 08/22/24 01/28/25 02/02/25 Rx .COMPLEX #30 tabs levothyroxine 25 mcg tablet See Rx Instructions .Route 09/29/24 01/28/25 02/02/25 Rx .COMPLEX #90 tabs apixaban 5 mg tablet (Eliquis) 5 mg PO BID #60 tabs 11/11/24 01/28/25 02/02/25 Rx hydroxyzine HCl 25 mg tablet 25 mg PO TID PRN anxiety #90 tabs 12/26/24 01/28/25 02/02/25 Rx prazosin 2 mg capsule 8 mg (4 x 2 mg) PO .at bedtime 12/26/24 01/28/25 02/02/25 Rx #120 caps quetiapine 50 mg tablet (Seroquel) 100 mg (2 x 50 mg) PO .QHS #60 tabs 12/26/24 01/28/25 02/02/25 Rx sertraline 100 mg tablet (Zoloft) 200 mg (2 x 100 mg) PO .morning 12/26/24 01/28/25 02/02/25 Rx #60 tabs magnesium citrate 300 ml PO DAILY PRN constipation 12/29/24 01/28/25 02/02/25 Rx #296 mL cholecalciferol (vitamin D3) 50 50 mcg PO DAILY #90 caps 12/30/24 01/28/25 02/02/25 Rx mcg (2,000 unit) capsule celecoxib 100 mg capsule 100 mg PO BID 01/28/25 01/28/25 02/02/25 History docusate sodium 100 mg capsule 100 mg PO BID 01/28/25 01/28/25 02/02/25 History ezetimibe 10 mg tablet 10 mg PO DAILY 01/28/25 01/28/25 02/02/25 History fluticasone propionate 50 1 spray intranasal DAILY 01/28/25 01/28/25 02/02/25 History mcg/actuation nasal spray,suspension nitroglycerin 0.4 mg sublingual 0.4 mg sublingual PRN PRN Chest 01/28/25 01/28/25 02/02/25 History tablet Pain simvastatin 80 mg tablet 80 mg PO DAILY 01/28/25 01/28/25 02/02/25 History ubrogepant 100 mg tablet (Ubrelvy) 100 mg PO PRN PRN Migraine Headache 01/28/25 01/28/25 02/02/25 History Allergies Allergy/AdvReac Type Severity Reaction Status Date / Time Iodine and Iodide Containing Allergy Intermediate sick Verified 02/03/25 07:13 Produc [facility] Anesthesia Medical History Annual physical exam Breast cancer screening by mammogram Colon cancer screening Chronic back pain Chronic back pain Atrial fibrillation with slow ventricular response Arrhythmia Sciatica associated with disorder of lumbar spine DDD (degenerative disc disease), lumbar Deep vein thrombosis (DVT) of right lower extremity Psychiatric care Medication management Chronic idiopathic constipation Chronic pain Vitamin D deficiency Seizure disorder Obesity COPD (chronic obstructive pulmonary disease) Hypothyroid Coronary artery disease Aortic aneurysm GERD (gastroesophageal reflux disease) Hyperlipidemia HTN (hypertension) Chronic post-traumatic stress disorder Major depressive disorder, recurrent episode, in partial remission with anxious distress Surgical History (Updated 12/29/24 @ 09:23 by FERMIN Oviedo) S/P cholecystectomy S/P coronary artery stent placement S/P aortic aneurysm repair Ascending aortic aneurysm repair by Dr Calderon Family History Other Myocardial infarction Stroke Social History Smoking and tobacco/nicotine status: former use of tobacco/nicotine Alcohol intake: never Substance/Drug Use: never Data Anesthesia Cardiac Studies: Echocardiogram 08/09/21 Holter Monitor 05/22/24
--- NOTE | 2025-02-03 08:20 | W.PM.OPSFHP ---
Same Day Surgery H&P Indication for Procedure/HPI DATE OF PROCEDURE: February 03, 2025 CHIEF COMPLAINT/INDICATIONFOR SURGICAL PROCEDURE: screening colonoscopy PREOP DIAGNOSIS: screening colonoscopy PLANNED PROCEDURE: Operation Date: 02/03/25 08:15 Proposed Procedures p Colonoscopy [id number] G0121, Z12.11(Not Applicable) - Alden Garcia MD Medications/Allergies* Home Medications ?Medication ?Instructions ?Recorded ?Confirmed ?Type cetirizine 10 mg tablet (Zyrtec) 10 mg PO QDAY 09/30/19 01/28/25 History celecoxib 100 mg capsule 100 mg PO BID 01/28/25 01/28/25 History docusate sodium 100 mg capsule 100 mg PO BID 01/28/25 01/28/25 History ezetimibe 10 mg tablet 10 mg PO DAILY 01/28/25 01/28/25 History fluticasone propionate 50 1 spray intranasal DAILY 01/28/25 01/28/25 History mcg/actuation nasal spray,suspension nitroglycerin 0.4 mg sublingual 0.4 mg sublingual PRN PRN Chest 01/28/25 01/28/25 History tablet Pain simvastatin 80 mg tablet 80 mg PO DAILY 01/28/25 01/28/25 History ubrogepant 100 mg tablet (Ubrelvy) 100 mg PO PRN PRN Migraine Headache 01/28/25 01/28/25 History Allergies/Adverse Reactions Allergy/AdvReac Type Severity Reaction Status Date / Time Iodine and Iodide Containing Allergy Intermediate sick Verified 02/03/25 07:13 Produc Current Medications: Generic Name Dose Route Start Last Admin Trade Name Freq PRN Reason Stop Dose Admin Sodium Chloride 1,000 mls @ 15 mls/hr 02/03/25 07:02 02/03/25 07:27 Sodium Chloride 0.9% IV 02/04/25 07:01 15 mls/hr .Q24H PRN Administration COLONOSCOPY FLUIDS Pertinent History/Comorbid Conditions* Medical History (Updated 12/21/24 @ 15:11 by FREDDIE Patel) Annual physical exam Breast cancer screening by mammogram Colon cancer screening Chronic back pain Chronic back pain Atrial fibrillation with slow ventricular response Arrhythmia Sciatica associated with disorder of lumbar spine DDD (degenerative disc disease), lumbar Deep vein thrombosis (DVT) of right lower extremity Psychiatric care Medication management Chronic idiopathic constipation Chronic pain Vitamin D deficiency Seizure disorder Obesity COPD (chronic obstructive pulmonary disease) Hypothyroid Coronary artery disease Aortic aneurysm GERD (gastroesophageal reflux disease) Hyperlipidemia HTN (hypertension) Chronic post-traumatic stress disorder Major depressive disorder, recurrent episode, in partial remission with anxious distress Surgical History (Updated 10/13/24 @ 09:22 by FREDDIE Johnson) S/P cholecystectomy S/P coronary artery stent placement S/P aortic aneurysm repair Ascending aortic aneurysm repair by Dr Calderon Family History (Updated 05/12/20 @ 10:46 by Keri Khanna RN) Myocardial infarction Stroke Social History Smoking and tobacco/nicotine status: former use of tobacco/nicotine Alcohol intake: never Substance/Drug Use: never Pertinent Exam Findings alert, oriented x 3, clear to auscultation bilaterally, regular rate & rhythm and procedure specific exam findings Abdomen soft, nt, nd Recommendations Risks and benefits of procedure reviewed Surgery/Procedure today Coding Level of Care Code Acute Code for Chg Rony
[2025-02-03 08:39] VITALS: BP 95/55; PULSE 55; RESP 14; TEMP 36.1; O2SAT 97
[2025-02-03 08:45] VITALS: BP 114/57; PULSE 55; RESP 16; O2SAT 98
[2025-02-03 08:55] VITALS: BP 107/80
--- NOTE | 2025-02-03 09:15 | ANE.PACU2 ---
Inpatient post-anesthesia follow up: Airway intact: Yes Vital signs: Temperature 97.0 F Pulse Rate 55 Respiratory Rate 16 Blood Pressure 107/80 Pulse Oximetry 98 Oxygen Delivery Me thod Room Air Oxygen Flow Rate 3 Fraction of Inspir ed Oxygen Hydration adequate: Yes Nausea and vomiting: No Pain level: 1 Mental status: Baseline
== END 2025-02-03 09:15 | disposition home or self-care (01) ==
PROVIDERS: PCP Nurse Practitioner Family; Visit Provider Student in an Organized Health Care Education/Training Program
PROC: 0DJD8ZZ Inspection of Lower Intestinal Tract, Via Natural or Artificial Opening Endoscopic (ICD-10-PCS; CPT 45378; principal; 2025-02-03 08:15)
DX: Z12.11 Encounter for screening for malignant neoplasm of colon (principal); G40.909 Epilepsy, unspecified, not intractable, without status epilepticus; Z87.891 Personal history of nicotine dependence; K21.9 Gastro-esophageal reflux disease without esophagitis; I48.91 Unspecified atrial fibrillation; J44.9 Chronic obstructive pulmonary disease, unspecified; E03.9 Hypothyroidism, unspecified; I25.10 Atherosclerotic heart disease of native coronary artery without angina pectoris; E78.5 Hyperlipidemia, unspecified; I10 Essential (primary) hypertension; F20.9 Schizophrenia, unspecified; Z91.041 Radiographic dye allergy status; Z80.0 Family history of malignant neoplasm of digestive organs; Z86.718 Personal history of other venous thrombosis and embolism; Z79.899 Other long term (current) drug therapy; Z79.01 Long term (current) use of anticoagulants; Z79.890 Hormone replacement therapy; Z95.5 Presence of coronary angioplasty implant and graft
CPT/HCPCS: G0105; J2704; J7030

== ENCOUNTER 2025-02-04 11:16 | Outpatient (CLI) | payer MEDICARE, MEDICAID, SELFPAY ==
--- NOTE | 2025-02-04 11:20 | MM_ITS ---
WS: [id number] BILATERAL 3D TOMOSYNTHESIS DIGITAL SCREENING MAMMOGRAPHY WITH CAD CLINICAL INFORMATION: SCREENING HISTORY: Screening mammogram. No current complaints. COMPARISON: 2023 TECHNIQUE: Bilateral CC and MLO views. FINDINGS: Scattered fibroglandular densities bilaterally. No suspicious focal mass, asymmetry, calcifications, or architectural distortion. No evidence of malignancy. Incidental punctate and skin calcifications. MM/MM scr tomosynthesis [id number] IMPRESSION: DENSITY: There are scattered areas of fibroglandular density. BI-RADS: 2 - Benign. FOLLOW UP: 1 Year Follow-up Recommend return to annual screening mammography.
== END 2025-02-04 11:17 | disposition home or self-care (01) ==
LOC: MOBLMAM 11:21
PROVIDERS: PCP Nurse Practitioner Family; Visit Provider Nurse Practitioner Family
DX: Z12.31 Encounter for screening mammogram for malignant neoplasm of breast (principal); R92.323 Mammographic fibroglandular density, bilateral breasts; R92.1 Mammographic calcification found on diagnostic imaging of breast
CPT/HCPCS: 77063; 77067

== ENCOUNTER → 2025-03-23 10:14 | Outpatient (BNVA) | payer MEDICARE, MEDICAID, SELFPAY | PROVIDERS: PCP Nurse Practitioner Family; Visit Provider Internal Medicine Cardiovascular Disease | DX: I48.91 Unspecified atrial fibrillation (principal); Z79.01 Long term (current) use of anticoagulants; I10 Essential (primary) hypertension; R00.1 Bradycardia, unspecified; E78.5 Hyperlipidemia, unspecified; Z98.890 Other specified postprocedural states; Z95.5 Presence of coronary angioplasty implant and graft; Z86.718 Personal history of other venous thrombosis and embolism; Z87.891 Personal history of nicotine dependence | CPT/HCPCS: 99214 ==

== ENCOUNTER → 2025-05-13 12:47 | Outpatient (BNVA) | payer MEDICARE, MEDICAID, SELFPAY | PROVIDERS: PCP Nurse Practitioner Family; Visit Provider Nurse Practitioner Women's Health | DX: Z12.4 Encounter for screening for malignant neoplasm of cervix (principal) | CPT/HCPCS: 87624 ==

== ENCOUNTER → 2025-07-03 08:54 | Outpatient (BNVA) | payer MEDICARE, MEDICAID, SELFPAY | PROVIDERS: PCP Nurse Practitioner Family; Visit Provider Nurse Practitioner Family | DX: I10 Essential (primary) hypertension (principal); E78.2 Mixed hyperlipidemia; E03.9 Hypothyroidism, unspecified; E55.9 Vitamin D deficiency, unspecified; F41.8 Other specified anxiety disorders; F33.41 Major depressive disorder, recurrent, in partial remission; Z79.899 Other long term (current) drug therapy | CPT/HCPCS: 80053; 80061; 81003; 82306; 83036; 84443; 85025 ==

== ENCOUNTER → 2025-07-08 09:19 | Outpatient (BNVA) | payer MEDICARE, MEDICAID, SELFPAY | PROVIDERS: PCP Nurse Practitioner Family; Visit Provider Specialist | DX: G43.711 Chronic migraine without aura, intractable, with status migrainosus (principal); R03.0 Elevated blood-pressure reading, without diagnosis of hypertension | CPT/HCPCS: 99213 ==